=== PATIENT | male | born 2005 | race Caucasian/White ===

== ENCOUNTER 2025-03-18 13:23 | Emergency (ER) | payer BC, SELFPAY ==
[2025-03-18 13:32] VITALS: BP 120/61; BP 140/80; PULSE 56; RESP 18; TEMP 36.4; O2SAT 99; BMI 26.0
--- OUTSIDE RECORDS SUMMARY | 2025-03-18 13:48 | XMS_ITS | Clinical Summary ---
Author Organization [facility] Address [address] [place] [id number] Phone Care Team Providers Care Travel Consultant Name Role Phone Danilo Zavala MD Primary Care Provider [phone] Allergies Active Allergy Reactions Criticality Noted Date Comments Amoxicillin 09/27/2018 Medications No known medications Active Problems Problem Noted Date Diagnosed Date Influenza vaccine refused 07/25/2024 COVID-19 vaccine dose declined 07/21/2023 Assessment & Plan (07/21/2023 2:23 PM EST): I encourage you to get the Covid booster to protect yourself and others. 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 Rib cage region somatic dysfunction 10/27/2022 07/21/2023 Overview (01/20/2023): Tender spot left lower ribs Assessment & Plan (07/21/2023 2:19 PM EST): Better now. Assessment & Plan (01/20/2023 3:10 PM EDT): Will check xray, but probably is tension related to work, and worry Assessment & Plan (10/27/2022 3:01 PM EST): Stop the energy drinks, drink lots of water., stretch if symptoms occur. Psychosocial stressors 10/27/202207/21 Overview (07/21/2023): Mom with stage II breast cancer. 07/15: mom doing well now after treatment. Assessment & Plan (01/21/2023 10:41 PM EDT): Mom just has mastectomy, Assessment & Plan (10/27/2022 3:02 PM EST): Let met know if I can do anything to help. Intrinsic eczema 01/30/2020 04/15/2022 Overview (01/30/2020): Comes and goes. Assessment & Plan (04/15/2022 2:08 PM EDT): Better now. Assessment & Plan (01/30/2020 4:20 PM EDT): Images from the original note were not included. Will have him mix triamcinalone .1% cream and CeraVe, and stay away from dryer sheets, harsh soaps. Take claritin daily Eczema 1. Cleanse with Dove Sensitive Skin soap. 2. Apply the compounded Triamcinalone/CeraVe cream immediately after shower or bath over entire skin from the neck down. Instructions for compounding: Empty 16 oz. jar of CeraVe cream into plastic container and squeeze entire 80 gm. tube of Triamcinalone cream into same container. Mix together thoroughly. After mixing keep at room temperature in a sealed container. BMI (body mass index), pedia tric, 85% to less than 95% for age 0209/27/2018 07/21/2023 Overview (07/21/2023): has had 40 lb wt gain. would eat a lot of zero point foods, especially in the afternoon. 04/12: was up to 200 lbs, but now eating healthy, and is growing taller. 07/15: lost 17 lbs running 3 miles a day Assessment & Plan (07/21/2023 2:21 PM EST): Keep up the good work! Assessment & Plan (04/15/2022 2:08 PM EDT): Wt stable, eats healthy, exercises regularly Assessment & Plan (04/08/2021 1:57 PM EDT): Keep up the good work! Assessment & Plan (11/18/2018 4:39 PM EDT): Suggest losing weight through healthy eating Immunizations Immunization Administration Dates Next Due COVID-19 bonnie Hopkins, 12+ years 04/15/2022 DTaP / Hep B / IPV 2005 DTaP 5 08/30/2009, 7,01/12/2006,11/09 Hep A, ped/adol 12/14/2014,08/10/2006 Hep B, ped/adol 01/12/2006,2005 Hib (HbOC) 10/19/2006 Hib (PRP-T) 01/12/2006,2005,2005 IPV 08/30/2009,05/18/2006,2005 Influenza, injectable, quadr ivalent, preservative free 07/02/2020 Influenza, injectable, trivalent 07/19/2007,09/24,07/19/2006 MMR 08/30/2009,07/19/2006 Meningococcal B Trumenba 07/25/2024,07/21/2023 Meningococcal Conj (Menactra) MCV4P 04/15/2022,0 02/12/2017 PPD Test 02/07/2024 Pneumococcal Conjugate 10/19/2006,2005,2005,09/18 Tdap 02/12/2017 Varicella 08/30/2009,08/10/2006,07/19/2006 Family History Medical History Relation Name Comments No Known Problems Father Rodolfo Migraines Mother Allison No Known Problems Sister Rocio Relation Name Status Comments Father Rodolfo Alive Father: ear inf ections,PET's, Alive and well Maternal Grandfather Materna l grandfather: Asthma Maternal Grandmother Materna l grandmother: Cancer, cervical Mother Allison Alive Mother: Migrain es Sister Rocio Alive Sister: Alive a nd well Social History Tobacco Use Types Packs/Day Years Used Date Smoking Tobacco: Never Comments:Never smoker Alcohol Use Standard Drinks/Week Comments Never 0 (1 standard drink = 0.6 oz pur e alcohol) Hunger/Food Answer Date Recorded In the last 12 months, did y ou or your family ever eat less than you felt you should because there wasn't enough money for food? No 07/25/2024 Stable Housing Answer Date Recorded Are you worried that in the next 2 months you may not have stable housing? No 07/25/2024 Transportation Concerns Answer Date Rec orded In the last 12 months, have you or your family ever had to go without healthcare because you didn't have a way to get there? No 07/25/2024 Hazards in Home Answer Date Recorded Think about the place you li ve. Do you have problems with any of the following? Pests (mice or roaches), mold, no/not working smoke detectors, water leaks, no window guards. No 2023 Financing Utilities Answer Date Recorde d In the last 12 months, has t he electric, gas, oil, or water company threatened to shut off your services in your home? No 07/25/2024 Safety at Home Answer Date Recorded Are you or your family worried about feeling saf e in your home? No 07/25/2024 Outside Support Answer Date Recorded Do you feel that you need mo re support from other people or programs to help you care for yourself or your family? No 07/25/2024 Understanding Health Concerns Answer Da te Recorded Do you need help understandi ng your or your child's healthcare needs (diagnosis, medications, plan, etc.)? No 07/25/2024 Financing Health Concerns Answer Date R ecorded In the last 12 months, was t here a time when your child needed to see a doctor or get medications or supplies but could not because of cost? No 07/25/2024 Missing School or Work Answer Date Henry rded Did you or your child miss s chool or work because of a health problem that could have been avoided? No 07/25/2024 Child Education Answer Date Recorded Do you have concerns about y our/your child's learning or behavior in school, preschool, or daycare? No 07/25/2024 Sex and Gender Information Value Date Recorded Sex Assigned at Not on file Legal Sex Male 4:56 PM EDT Gender Identity Not on file Sexual Orientation Straight 04/08/2021 6: 07 PM EDT Last Filed Vital Signs Vital Sign Reading Time Taken Comments Blood Pressure 124/69 07/25/2024 9:35 AM EST Pulse 74 07/25/2024 9:35 AM EST Temperature 36.3 C (97.4 F) 04/11/2024 9:37 AM EDT Respiratory Rate - - Oxygen Saturation 100% 10/27/2022 2:14 PM EST Inhaled Oxygen Concentration - - Weight 79.8 kg (176 lb) 07/25/2024 9:35 AM EST Height 181.6 cm (5' 11.5 ) 07/25/2024 9:35 AM ES T Body Mass Index 24.2 07/25/2024 9:35 AM EST Plan of Treatment Health Maintenance Due Date Last Done Comments HPV Vaccines (1 - Male 3-dos e series) 2020 COVID-19 Vaccine (4 - 2023-2 5 season) 2024 04/15/2022, 01/27/2021, 01/06/2021 Influenza Vaccines (#1) 2025 07/02/20 20, 07/19/2007, 10/19/2006, Additional history exists DTaP,Tdap,and Td Vaccines (7 - Td or Tdap) 02/12/2027 02/12/2017, 08/30/2009, 10/19/2006, Additional history exists Hepatitis B Vaccines Completed 01/12/2006, 2005, 2005 HIB Vaccines Completed 10/19/2006, 12/22, 2005, Additional history exists Pneumococcal Vaccine Completed 10/19/2006, 01/12/2006, 2005, Additional history exists IPV Vaccines Completed 08/30/2009, 04/24, 2005, Additional history exists MMR Vaccines Completed 08/30/2009, 07/19/2006 Varicella Vaccines Completed 08/30/2009, 1 2005, 07/19/2006 Hepatitis A Vaccines Completed 12/14/2014, 08/10/20 Meningococcal Vaccine Completed 04/15/2022, 017 Men B Vaccine Completed 07/25/2024, 07/21/2023 Insurance [facility] Care Teams Travel Consultant Relationship Specialty Start Date End Date Danilo Zavala MD [address] [facility] [place] [phone] PCP - General Pediatrics 01/17/25
--- NOTE | 2025-03-18 14:25 | ED.ALLEREA ---
HPI - Allergic Reaction General Chief complaint: Allergic Reaction Stated complaint: ALLERGIC RXN,STUNG/5 BEES,FROM URGENT CARE PER EMS Source: patient and EMS Mode of arrival: EMS Limitations: no limitations History of Present Illness ED Provider: ALCON HPI narrative: 19 yo male outside stung by 5 bees - c/o facial swelling, dyspnea and hives - went to given steroids, benadryl and epi on arrival here much better but still has some swelling around the eyes. No prior hx of this in past. 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) Exposure: insect bite Symptoms: rash, itching, facial swelling and difficulty breathing Severity: severe Treatment prior to arrival: benadryl, epinephrine and steroids Previous Allergic Reaction History: none Related Data Previous Rx's ?Medication ?Instructions ?Recorded epinephrine 0.3 mg/0.3 mL 0.3 mg (0.3 mL) IM Q10M PRN 03/18/25 injection, auto-injector anaphylaxis #2 ea Allergies Allergy/AdvReac Type Severity Reaction Status Date / Time bee pollen (bee stings) Allergy Hives Verified 03/18/25 13:35 Review of Systems Review of Systems: Constitutional : No Fever, No Chills ENT/Mouth : no oral swelling, No Hoarseness, No Swallowing Difficultym,pos periorbital swelling Eyes: No Eye Pain, No Swelling, No Redness Cardiovascular : No Chest Pain, pos SOB Respiratory : No Cough, No Sputum, No Wheezing, No Smoke Exposure, No Dyspnea Gastrointestinal : No Nausea, No Vomiting, No Diarrhea, No abdominal Pain Genitourinary : No Dysuria, No Urinary Frequency, No Hematuria Musculoskeletal : No joint pain, No Myalgias, No Joint Swelling Skin : No Skin Lesions, positive rash All other systems reviewed and are negative [facility] Past Medical History Attestation statement: The following information was validated with the patient. Medical History No pertinent past medical history Social History Social History (Updated 03/18/25 @ 14:30 by Starr Salgado DO) Unable to assess alcohol history related to: Unknown Patient Tobacco Use Status: Never used Tobacco Physical Exam ED Vital Signs: Vital Signs - 24 hr 03/18/25 13:32 Temperature 97.6 F Pulse Rate 56 Respiratory Rate 18 Blood Pressure 120/61 Pulse Oximetry 99 Oxygen Delivery Method Room Air BMI result Body Mass Index 26.0 Appearance: Alert. Oriented X3. No acute distress. Eyes: Pupils equal, round and reactive to light. mild periorbital swelling noted both eyes ENT: Pharynx normal. No swelling Neck: Normal inspection. Neck supple. CVS: Normal heart rate and rhythm. Pulses normal. Respiratory: No respiratory distress. Breath sounds normal. No stridor Abdomen: Soft and nontender. Skin: Skin warm and dry. Normal skin color. Normal skin turgor. Extremities: No lower extremity edema. Neuro: Oriented X 3. No motor deficit. No sensory deficit. CN2-12 intact Medical Decision Making Medical Decision Making MDM Narrative: 19 yo male with no sig PMH no prior allergy here s/p bee sting while working outside already given epi , steroids, benadryl pre hospital and doing well - VS stable, lungs CTAB, no angioedema will obs x 2 hours and then start on zyrtec and epi pen RX Differential Diagnosis Differential Diagnoses: The differential diagnosis associated with the presentation includes allergy, anaphylaxis Admission/Observation Consideration of admission/observation: Escalation of care including admission/observation considered improved at 2 hours stable for DC Independent Historian Clinical information obtained from an independent historian. History obtained from or confirmed by: EMS Prescription Management I considered prescription management with: Other Discharge Plan Discharge Clinical Impression: Anaphylaxis Patient Disposition: Home, Self-Care Instructions: General Allergic Reaction (ED) Additional Instructions: carry epi pen with you at all times take zyrtec 10mg daily for next 7 days return for worsening swelling, difficulty breathing or any other concerns Prescriptions: New epinephrine 0.3 mg/0.3 mL auto-injector 0.3 mg IM Q10M PRN (Reason: anaphylaxis) Qty: 2 1RF Rx Instructions: for 2 doses Print Language: Danish
[2025-03-18 15:37] VITALS: BP 108/60; PULSE 68; RESP 18; TEMP 36.4; O2SAT 100
== END 2025-03-18 15:38 | disposition home or self-care (01) ==
PROVIDERS: Emergency Provider Emergency Medicine
DX: T63.441A Toxic effect of venom of bees, accidental (unintentional), initial encounter (principal); T78.2XXA Anaphylactic shock, unspecified, initial encounter; X58.XXXA Exposure to other specified factors, initial encounter; R06.02 Shortness of breath; L50.0 Allergic urticaria
CPT/HCPCS: 99283; 99284